=== PATIENT | female | born 1990 | race Caucasian/White ===

== ENCOUNTER 2019-11-23 03:43 | Emergency (ER) | payer OTHER ==
[~2019-11-23] VITALS: Ht 154.9 cm; Wt 61.8 kg
[2019-11-23 03:45] VITALS: BP 118/79
[2019-11-23] MEDS ORDERED: ONDANSETRON ODT 8 MG ONE (04:08)
--- NOTE | 2019-11-23 04:13 | NUR ---
PT TO ROOM TACHYPNIC, COMPLAIN OF FEELING NUMB, ENCOURAGE TO PLEASE USE BAG FOR REBREATHING, PT TOLERATING EVERYTHING WITH DIFFICULTY, MEDICATED WITH ODT ZOFRAN.
[2019-11-23] MEDS ORDERED: ONDANSETRON ODT 4 MG PO ONE (04:30)
[2019-11-23] MEDS ORDERED: PROMETHAZINE 25 MG/ML, 1ML ONE (04:55)
[2019-11-23 04:57] LABS: BASOPHILS # (AUTO) 0.03 x10^3/uL (0-0.1); BASOPHILS % (AUTO) 0 % (0-1); EOSINOPHILS # (AUTO) 0.01 x10^3/uL (0-0.4); EOSINOPHILS % (AUTO) 0 % (1-7); LYMPHOCYTES # (AUTO) 1.52 x10^3/uL (1-3.4); LYMPHOCYTES % (AUTO) 17 % (22-44); MD NO; MEAN CORPUSCULAR HEMOGLOBIN 30.9 pg (27.0-34.8); MEAN CORPUSCULAR HGB CONC 33.8 g/dL (32.4-35.8); MEAN CORPUSCULAR VOLUME 91.5 fL (80-100); MONOCYTES # (AUTO) 0.56 x10^3/uL (0.2-0.8); MONOCYTES % (AUTO) 6 % (2-9); NEUTROPHILS # (AUTO) 6.64 x10^3/uL (1.8-6.8); NEUTROPHILS % (AUTO) 76 % (42-75); PLATELET COUNT 207 x10^3/uL (130-400); RED BLOOD COUNT 4.34 x10^6/uL (3.82-5.3); RED CELL DISTRIBUTION WIDTH 12.5 % (9.6-15.2)
[2019-11-23] MEDS ORDERED: PROMETHAZINE 25 MG/ML, 1ML IM ONE (05:00)
[2019-11-23] MEDS ORDERED: FAMOTIDINE 20 MG/2 ML IV ONE (05:00)
[2019-11-23] MEDS ORDERED: SODIUM CHLORIDE 0.9% 1,000ML IVBOLUS ONE (05:00)
[2019-11-23 05:08] LABS: ALANINE AMINOTRANSFERASE 33 U/L (12-78); ALBUMIN 4.7 g/dL (3.4-5.0); ANION GAP 10 mmol/L (5-15); CALCIUM 9.1 mg/dL (8.5-10.1); CHLORIDE 108 mmol/L (98-107); CREATININE 1.03 mg/dL (0.55-1.02)
[2019-11-23 05:13] LABS: ALKALINE PHOSPHATASE 52 U/L (45-117); BILIRUBIN,TOTAL 0.3 mg/dL (0.2-1.0)
[2019-11-23] MEDS ORDERED: MORPHINE SULFATE 4 MG/ML, 1ML ONE ×2 (05:23→06:10)
[2019-11-23] MEDS: MORPHINE SULFATE 4 MG/ML, 1ML IVPush PRN ×2 (05:28→06:17)
[2019-11-23] MEDS ORDERED: FAMOTIDINE 20 MG/2 ML ONE (05:30)
--- NOTE | 2019-11-23 05:36 | NUR ---
PT REMOVED ALL MONITORING REFUSING BP AT THIS TIME
[2019-11-23] MEDS ORDERED: METOCLOPRAMIDE 5 MG/ML, 2ML ONE (06:10)
--- NOTE | 2019-11-23 06:17 | NUR ---
PT MEDICATED FOR PAIN/ NAUSEA TOLERATED WELL KENYON
[2019-11-23] MEDS ORDERED: METOCLOPRAMIDE 5 MG/ML, 2ML IVPush ONE (06:30)
== END 2019-11-23 06:39 | disposition home or self-care (01) ==
LOC: ED 06:28
DX: R10.13 Epigastric pain (principal); R11.2 Nausea with vomiting, unspecified
CPT/HCPCS: 36415; 80053; 80307; 83690; 84703; 85025; 96361; 96372; 96374; 96375; 96376; 99284; J2270; J2550; J2765; J3490; J7030; Q0162